=== PATIENT | female | born 1935 | race Caucasian/White ===

== ENCOUNTER 2023-06-21 08:00 | Inpatient (IN) | payer MEDICARE, BC ==
[~2023-06-21] VITALS: Ht 154.9 cm; Wt 64.8 kg
[2023-06-21] VITALS (20 sets, daily range): BP systolic 82–164; BP diastolic 42–78; PULSE 71–99; RESP 14–21; TEMP 97–98; O2SAT 92–98
[2023-06-21] MEDS: normal saline 1,000 ML IV SCH ×2 (08:15→18:20)
[2023-06-21] MEDS ORDERED: diphenhydrAMINE 25mg capsule PO PRN (08:20)
[2023-06-21] MEDS ORDERED: DENO60DI SUBCUT (08:47)
[2023-06-21] MEDS ORDERED: POTA-366 PO (08:47)
[2023-06-21] MEDS ORDERED: APIX5TAB3 PO (08:47)
[2023-06-21] MEDS ORDERED: ALBU8HFA (08:47)
[2023-06-21] MEDS ORDERED: LEVO88TA7 PO (08:47)
[2023-06-21] MEDS ORDERED: FURO20TA4 PO (08:47)
[2023-06-21] MEDS ORDERED: METO50TA16 PO (08:47)
[2023-06-21] MEDS ORDERED: FEXO-271 PO (08:47)
[2023-06-21] MEDS ORDERED: ROSU20TA73 PO (08:47)
[2023-06-21] MEDS ORDERED: FLUT1BLS16 INH (08:47)
[2023-06-21] MEDS ORDERED: LISI20TA28 PO (08:47)
[2023-06-21 09:15] LABS: INR 1.1 INR; PROTHROMBIN TIME 11.4 SECONDS (9.0-12.0)
[2023-06-21 09:18] LABS: ALBUMIN 3.6 G/DL (3.4-5.0); ANION GAP 9 (8-16); BLOOD UREA NITROGEN 20 MG/DL (7-18); BUN/CREATININE RATIO 18.7 (10.0-20.0); CALCIUM 9.8 MG/DL (8.5-10.1); CHLORIDE 105 MMOL/L (99-107); CREATININE 1.07 MG/DL (0.40-0.90); EOSINOPHILS # (AUTO) 0.4 X10'3 (0-0.9); GLUCOSE 94 MG/DL (70-104); HEMOGLOBIN 11.5 g/dl (12.0-16.0); LYMPHOCYTES # (AUTO) 0.8 X10'3 (1.1-4.8); MAGNESIUM 2.1 MG/DL (1.5-2.4); MEAN PLATELET VOLUME 7.9 FL (7.4-10.4); NEUTROPHILS # (AUTO) 4.4 X10'3 (1.8-7.7); POTASSIUM 4.3 MMOL/L (3.5-5.1); SODIUM 139 MMOL/L (135-145); TOTAL CARBON DIOXIDE 25.2 MMOL/L (24-32); eCRCL 27 ML/MIN; eGFR 48 ML/MIN
[2023-06-21 09:20] LABS: BASOPHILS % (AUTO) 0.8 % (0-1); EOSINOPHILS % (AUTO) 6.9 % (0-6); HEMATOCRIT 35.3 % (35.0-45.0); LYMPHOCYTES % (AUTO) 13.1 % (21-51); MEAN CORPUSCULAR HGB CONC 32.4 g/dL (33.0-36.5); MEAN CORPUSCULAR VOLUME 89.3 FL (78-98); MONOCYTES # (AUTO) 0.5 X10'3 (0-0.9); MONOCYTES % (AUTO) 7.7 % (2-12); NEUTROPHILS % (AUTO) 71.5 % (42-75); PLATELET COUNT 223 X10'3 (140-440); RED BLOOD COUNT 3.95 X10'6 (4.20-5.60); RED CELL DISTRIBUTION WIDTH 18.8 % (11.5-14.5); WHITE BLOOD COUNT 6.1 X10'3 (4.5-11.0)
[2023-06-21 10:19] LABS: ANISOCYTOSIS 2+; PLATELET ESTIMATE NORMAL
[2023-06-21] MEDS ORDERED: verapamil 2.5 mg/ml inj IV ONE (11:07)
[2023-06-21] MEDS ORDERED: midazolam 1 mg/ML 2ml injection ONE (11:07)
[2023-06-21] MEDS ORDERED: LIDOcaine 1% (10mg/ml) 2ml vial ONE (11:07)
[2023-06-21] MEDS ORDERED: iohexol 350MG/ML 100ml bottle IV ONE (11:08)
[2023-06-21] MEDS ORDERED: iohexol 350 MG/ML 50ML vial IV ONE (11:08)
[2023-06-21] MEDS ORDERED: fentaNYL/PF 50MCG/1 ML 2ML syringe ONE (11:08)
[2023-06-21] MEDS ORDERED: heparin 1,000unit/ml 10ml vial 10 ML ONE (11:08)
[2023-06-21] MEDS ORDERED: LIDOcaine 1% 30ml preserv. free vial ONE (11:19)
[2023-06-21] MEDS ORDERED: hydrALAZINE 20mg/ml inj. IV ONE (12:09)
[2023-06-21] MEDS ORDERED: ondansetron/PF 4mg/2ml inj IV PRN (12:55)
[2023-06-21] MEDS ORDERED: HYDROcodone/acetaminophen 10/325mg tab PO PRN (12:55)
[2023-06-21] MEDS ORDERED: proCHLORperazine 10 MG/2 ml inj IV PRN (12:55)
[2023-06-21] MEDS ORDERED: HYDROcodone/acetaminophen 5mg/325mg tablet PO PRN (12:55)
[2023-06-21] MEDS ORDERED: normal saline 1000ml 1,000 ML IV SCH (12:55)
[2023-06-21] MEDS ORDERED: mag hydrox/Alum hydrox/simeth 30ml oral suspension PO ONE (14:15)
--- NOTE | 2023-06-21 14:18 | NUR ---
Pt having intermittent chest pressure/ stabbing. EKG done and unchanged from this morning. Bolus 250 mls normal saline given for bp's high 80's to low 90's. Per report apresoline given during case. Some improvement in bp's, now [address] Leach made aware of all. Echocardiogram in progress. Rec orders for Maalox PO per Dr Leach, stated not concerned about coronary artery cause. Will give ordered Maalox and monitor.
--- NOTE | 2023-06-21 16:01 | NUR ---
Dr Leach at bedside seeing patient and reviewing echocardiogram. [facility] [place] technical support specialist on unit with Dr Leach. Made aware pt having pain on inspiration and the pain remains at 6-7. BP's stable at this time.
[2023-06-21] MEDS ORDERED: ketorolac tromethamine 15mg/ml inj. IV ONE (16:20)
[2023-06-21] MEDS ORDERED: DENOSUMAB 60 MG/ML inj. SQ SCH (18:40)
[2023-06-21] MEDS: budesonide 0.5mg/2ml UD nebule IH SCH ×2 (20:27→21:00)
[2023-06-21] MEDS: ipratropium/albuterol 3ml nebule NEB SCH (20:28)
[2023-06-21] MEDS: apixaban 5mg tablet PO SCH (20:31)
[2023-06-21] MEDS: metoprolol tartrate 50mg tablet PO SCH (20:32)
[2023-06-21] MEDS ORDERED: atorvastatin 20mg tablet PO SCH (21:00)
[2023-06-22] VITALS (7 sets, daily range): BP systolic 120–129; BP diastolic 64; PULSE 71–93; RESP 16–18; TEMP 97.7; O2SAT 92–98
[2023-06-22] MEDS: ipratropium/albuterol 3ml nebule NEB SCH ×2 (03:20→07:07)
[2023-06-22] MEDS: normal saline 1,000 ML IV SCH (05:06)
[2023-06-22 06:22] LABS: BASOPHILS % (AUTO) 0.4 % (0-1); EOSINOPHILS # (AUTO) 0.2 X10'3 (0-0.9); EOSINOPHILS % (AUTO) 2.6 % (0-6); HEMATOCRIT 28.8 % (35.0-45.0); HEMOGLOBIN 9.3 g/dl (12.0-16.0); LYMPHOCYTES # (AUTO) 1.2 X10'3 (1.1-4.8); LYMPHOCYTES % (AUTO) 15.7 % (21-51); MEAN CORPUSCULAR HGB CONC 32.2 g/dL (33.0-36.5); MEAN CORPUSCULAR VOLUME 90.2 FL (78-98); MONOCYTES # (AUTO) 0.7 X10'3 (0-0.9); MONOCYTES % (AUTO) 9.3 % (2-12); NEUTROPHILS # (AUTO) 5.5 X10'3 (1.8-7.7); PLATELET COUNT 208 X10'3 (140-440); RED CELL DISTRIBUTION WIDTH 18.5 % (11.5-14.5); WHITE BLOOD COUNT 7.7 X10'3 (4.5-11.0)
[2023-06-22 06:23] LABS: ANION GAP 9 (8-16); BLOOD UREA NITROGEN 23 MG/DL (7-18); BUN/CREATININE RATIO 17.2 (10.0-20.0); CALCIUM 8.7 MG/DL (8.5-10.1); CHLORIDE 107 MMOL/L (99-107); CREATININE 1.34 MG/DL (0.40-0.90); GLUCOSE 106 MG/DL (70-104); POTASSIUM 3.8 MMOL/L (3.5-5.1); SODIUM 138 MMOL/L (135-145); TOTAL CARBON DIOXIDE 21.7 MMOL/L (24-32); eCRCL 21 ML/MIN; eGFR 37 ML/MIN
--- NOTE | 2023-06-22 06:28 | NUR ---
Patient in room PCU 3027. I have received report from Lianne SPENCE and had the opportunity to ask questions and assume patient care.
[2023-06-22 06:29] LABS: INR 1.1 INR; PROTHROMBIN TIME 11.9 SECONDS (9.0-12.0)
--- NOTE | 2023-06-22 06:36 | NUR ---
Problems reprioritized. Patient report given, questions answered & plan of care reviewed with Barber
[2023-06-22] MEDS: budesonide 0.5mg/2ml UD nebule IH SCH (07:07)
[2023-06-22] MEDS ORDERED: loratadine 10mg tablet PO SCH (08:00)
[2023-06-22] MEDS ORDERED: lisinopril 10 MG tablet PO SCH (08:00)
[2023-06-22] MEDS ORDERED: furosemide 20MG tablet PO SCH (08:00)
[2023-06-22] MEDS ORDERED: potassium Cl 20 mEq SR tablet PO SCH (08:00)
[2023-06-22] MEDS ORDERED: levoTHYROXINE 88mcg tablet PO SCH (08:00)
[2023-06-22] MEDS: apixaban 5mg tablet PO SCH (08:14)
[2023-06-22] MEDS: metoprolol tartrate 50mg tablet PO SCH (08:16)
--- NOTE | 2023-06-22 10:45 | NUR ---
Pt DC'd as per Dr's orders. Pt was unhooked from all tele and IV's. Education was provided at bedside to family and pt, all questions were answered. Pt will schedule follow up appointments and no med changes were made. Belongings were gathered up by the pt and taken with them. Pt was wheeled down to lobby by care staff and put in private vehicle destined for home.
== END 2023-06-22 10:40 | disposition home or self-care (01) | DRG 287 ==
LOC: SSTAY O 08:00 → PCU 3S 12:11
PROVIDERS: ADMIT Internal Medicine Cardiovascular Disease; ATTEND Internal Medicine Cardiovascular Disease
PROC: 4A023N8 Measurement of Cardiac Sampling and Pressure, Bilateral, Percutaneous Approach (ICD-10-PCS; principal; 2023-06-21)
PROC: B2111ZZ Fluoroscopy of Multiple Coronary Arteries using Low Osmolar Contrast (ICD-10-PCS; 2023-06-21)
DX: I35.0 Nonrheumatic aortic (valve) stenosis (principal)
CPT/HCPCS: 36415; 80048; 83735; 85008; 85025; 85610; 93005; 93306; 93460; 94640; 94760; 99152; 99153; A6258; C1725; C1751; C1760; C1769; C1894; G0378; J0360; J1644; J1885; J2250; J3010; J3490; J7030; Q9967

== ENCOUNTER 2023-07-02 10:49 | Outpatient (CLI) | payer MEDICARE, BC ==
[~2023-07-02 10:49] MED LIST: ALBU8HFA; APIX5TAB3 PO; DENO60DI SUBCUT; FEXO-271 PO; FLUT1BLS16 INH; FURO20TA4 PO; LEVO88TA7 PO; LISI20TA28 PO; METO50TA16 PO; POTA-366 PO; ROSU20TA73 PO
[2023-07-02 11:58] LABS: BASOPHILS # (AUTO) 0.1 X10'3 (0-0.2); EOSINOPHILS # (AUTO) 0.3 X10'3 (0-0.9); HEMATOCRIT 32.6 % (35.0-45.0); HEMOGLOBIN 10.4 g/dl (12.0-16.0); LYMPHOCYTES # (AUTO) 0.9 X10'3 (1.1-4.8); MEAN CORPUSCULAR HEMOGLOBIN 28.5 PG (27.0-31.0); MEAN CORPUSCULAR HGB CONC 31.9 g/dL (33.0-36.5); MEAN CORPUSCULAR VOLUME 89.1 FL (78-98); MEAN PLATELET VOLUME 7.7 FL (7.4-10.4); MONOCYTES # (AUTO) 0.5 X10'3 (0-0.9); MONOCYTES % (AUTO) 9.6 % (2-12); NEUTROPHILS # (AUTO) 3.8 X10'3 (1.8-7.7); NEUTROPHILS % (AUTO) 67.4 % (42-75); PLATELET COUNT 260 X10'3 (140-440); RED BLOOD COUNT 3.66 X10'6 (4.20-5.60); RED CELL DISTRIBUTION WIDTH 18.3 % (11.5-14.5); WHITE BLOOD COUNT 5.6 X10'3 (4.5-11.0)
[2023-07-02 12:04] LABS: APTT 32 SECONDS (22-32); INR 1.2 INR; PROTHROMBIN TIME 12.4 SECONDS (9.0-12.0)
[2023-07-02 12:21] LABS: ALANINE AMINOTRANSFERASE 11 U/L (12-78); ALBUMIN 3.2 G/DL (3.4-5.0); ALBUMIN/GLOBULIN RATIO 0.9 (1.1-1.5); ALKALINE PHOSPHATASE 94 IU/L (46-116); ANION GAP 8 (8-16); ASPARTATE AMINO TRANSFERASE 21 U/L (10-37); BILIRUBIN,TOTAL 0.5 MG/DL (0.1-1.0); BLOOD UREA NITROGEN 17 MG/DL (7-18); BUN/CREATININE RATIO 17.7 (10.0-20.0); CALCIUM 9.5 MG/DL (8.5-10.1); CHLORIDE 106 MMOL/L (99-107); CREATININE 0.96 MG/DL (0.40-0.90); GLUCOSE 96 MG/DL (70-104); POTASSIUM 4.3 MMOL/L (3.5-5.1); PRO BRAIN NATRIURETIC PEPTIDE 3746 PG/ML (0-450); SODIUM 139 MMOL/L (135-145); TOTAL CARBON DIOXIDE 25.1 MMOL/L (24-32); TOTAL PROTEIN 6.8 G/DL (6.4-8.2); eGFR 55 ML/MIN
== END 2023-07-02 23:59 | disposition home or self-care (01) ==
LOC: VAS 10:49
PROVIDERS: ATTEND Internal Medicine Cardiovascular Disease
DX: I08.0 Rheumatic disorders of both mitral and aortic valves (principal); R06.02 Shortness of breath; I65.23 Occlusion and stenosis of bilateral carotid arteries; J90 Pleural effusion, not elsewhere classified; J98.11 Atelectasis; I70.0 Atherosclerosis of aorta; K76.89 Other specified diseases of liver; N28.1 Cyst of kidney, acquired; M85.88 Other specified disorders of bone density and structure, other site; M47.814 Spondylosis without myelopathy or radiculopathy, thoracic region; K40.20 Bilateral inguinal hernia, without obstruction or gangrene, not specified as recurrent
CPT/HCPCS: 36415; 71046; 71275; 74174; 75572; 80053; 83880; 85025; 85610; 85730; 93880; Q9967

== ENCOUNTER 2023-07-08 14:39 | Outpatient (CLI) | payer MEDICARE, BC ==
[~2023-07-08] VITALS: Ht 154.9 cm; Wt 64.2 kg
[~2023-07-08 14:39] MED LIST changes: +IODIXANOL 320 MG/ML INFUS..BTL 100ML IV ONE
[2023-07-08 16:00] VITALS: BP 144/74; PULSE 76; RESP 22; TEMP 97.4; O2SAT 97
--- NOTE | 2023-07-08 16:01 | NUR ---
Patient and son Neal and Daughter in Law were in the [facility] clinic today to consult with Dr. Wood, Dr. Fabiola Wren and Dr. Gregory. [facility] attempted, patient unsteady and unable to complete the test. Vital signs measured. Patient education reviewed and questions answered.
== END 2023-07-08 23:59 | disposition home or self-care (01) ==
LOC: TAVR 14:39
PROVIDERS: ATTEND Internal Medicine Cardiovascular Disease
DX: I11.9 Hypertensive heart disease without heart failure (principal); I35.0 Nonrheumatic aortic (valve) stenosis; R06.02 Shortness of breath; I65.29 Occlusion and stenosis of unspecified carotid artery; I48.91 Unspecified atrial fibrillation; E78.5 Hyperlipidemia, unspecified
CPT/HCPCS: Q9967

== ENCOUNTER 2023-09-09 07:26 | Inpatient (IN) | payer MEDICARE, BC ==
[2023-09-03 12:10] LABS: BASOPHILS # (AUTO) 0.1 X10'3 (0-0.2); BASOPHILS % (AUTO) 0.8 % (0-1); EOSINOPHILS # (AUTO) 0.5 X10'3 (0-0.9); EOSINOPHILS % (AUTO) 8.2 % (0-6); LYMPHOCYTES # (AUTO) 0.8 X10'3 (1.1-4.8); LYMPHOCYTES % (AUTO) 12.6 % (21-51); MEAN CORPUSCULAR VOLUME 87.5 FL (78-98); MEAN PLATELET VOLUME 7.9 FL (7.4-10.4); MONOCYTES # (AUTO) 0.5 X10'3 (0-0.9); MONOCYTES % (AUTO) 7.2 % (2-12); NEUTROPHILS # (AUTO) 4.6 X10'3 (1.8-7.7); NEUTROPHILS % (AUTO) 71.2 % (42-75); PRE OP HEMATOCRIT 37.2 % (35.0-45.0); PRE OP HEMOGLOBIN 11.9 g/dL (12.0-16.0); PRE OP PLATELET COUNT 240 X10'3 (140-440); PRE OP WHITE BLOOD COUNT 6.4 10'3 (4.8-10.8); RED BLOOD COUNT 4.25 X10'6 (4.20-5.60); RED CELL DISTRIBUTION WIDTH 20.1 % (11.5-14.5)
[2023-09-03 12:19] LABS: BILIRUBIN,URINE NEGATIVE (Neg); CLARITY,URINE CLEAR (Clear); COLOR,URINE YELLOW (Yellow); GLUCOSE, URINE NEGATIVE (Neg); KETONES,URINE NEGATIVE (Neg); LEUKOCYTE ESTERASE ,URINE MODERATE (Neg); NITRITES, URINE NEGATIVE (Neg); OCCULT BLOOD,URINE TRACE-INTACT (Neg); PH,URINE 6.5 (4.8-8.0); PROTEIN,URINE NEGATIVE (Neg); UROBILINOGEN,URINE 0.2 E.U/dL (0.2-1.0)
[2023-09-03 12:20] LABS: PRE OP INR 1.1 INR
[2023-09-03 12:34] LABS: UA COLLECTION TYPE NON-SPECIFIED
[2023-09-03 12:35] LABS: BACTERIA,URINE FEW /HPF (Neg); MUCUS STRANDS FEW /LPF (Neg); SQUAMOUS EPITHELIAL CELL,UR MODERATE /LPF (FEW)
[2023-09-03 12:36] LABS: TRANSITIONAL EPI CELLS,URINE FEW /HPF
[2023-09-03 12:44] LABS: ALBUMIN 3.6 G/DL (3.4-5.0); ALKALINE PHOSPHATASE 64 IU/L (46-116); BLOOD UREA NITROGEN 18 MG/DL (7-18); BUN/CREATININE RATIO 17.6 (10.0-20.0); CALCIUM 9.8 MG/DL (8.5-10.1); CHLORIDE 103 MMOL/L (99-107); CREATININE 1.02 MG/DL (0.40-0.90); PRE OP ALT 16 U/L (30-65); PRE OP ANION GAP 8 (8-16); PRE OP AST 25 U/L (10-37); PRE OP BILIRUB, TOTAL 0.6 MG/DL (0.0-1.0); PRE OP GLUCOSE 90 MG/DL (70-104); PRE OP POTASSIUM 3.9 MMOL/L (3.4-5.1); PRE OP SODIUM 139 MMOL/L (135-145); PRO BRAIN NATRIURETIC PEPTIDE 4418 PG/ML (0-450); TOTAL CARBON DIOXIDE 27.7 MMOL/L (24-32); TOTAL PROTEIN 7.3 G/DL (6.4-8.2); eGFR 51 ML/MIN
[2023-09-03 12:54] LABS: ANISOCYTOSIS 3+; PLATELET ESTIMATE NORMAL
[2023-09-03 12:55] LABS: ELLIPTOCYTES FEW; SCHISTOCYTES FEW
[2023-09-09] VITALS (27 sets, daily range): BP systolic 121–175; BP diastolic 57–85; PULSE 64–101; RESP 11–24; TEMP 97.6–98.6; O2SAT 94–100
[~2023-09-09] VITALS: Ht 154.9 cm; Wt 63.6 kg
[~2023-09-09 07:26] MED LIST changes: -DENO60DI SUBCUT; +DOCUMENT DATE & TIME OF BETA-BLOCKER PO ONE; -FEXO-271 PO; -IODIXANOL 320 MG/ML INFUS..BTL 100ML IV ONE; +albuterol 2.5 MG/3 ML nebule NEB ONE; +aspirin 325mg tablet PO ONE; +cefazolin 2gm/D5W 100mL 100 ML IV ONE; +famotidine 20mg tablet PO ONE; +nitroPRUSSIDE (NIPRIDE) (200MCG/ML) 100ML Drip IV SCH; +ondansetron 4mg rapidly disintigrating tab PO PRN; +phenylephrine inj 50 MG in normal saline 250ml IV solN IV SCH; +protamine sulfate 10mg/ml inj. ONE; +ringers solution, lacted 1,000 ML IV SCH; +vancomycin/NS 1 GM in NS 250 ML IV ONE
[2023-09-09] MEDS ORDERED: LIDOcaine 1% (10mg/ml) 2ml vial ONE (09:53)
[2023-09-09] MEDS ORDERED: iohexol 350MG/ML 100ml bottle IV ONE (10:24)
[2023-09-09] MEDS ORDERED: LIDOcaine 1% (10mg/ml)w/preservative inj. 20ml MDV ONE (10:24)
[2023-09-09] MEDS ORDERED: heparin 1,000 UNITS/NS 500ml 1,500 ML ONE (10:25)
[2023-09-09] MEDS ORDERED: protamine sulf. 10mg/ml inj. IV ONE (10:30)
[2023-09-09] MEDS ORDERED: heparin 1,000 units/ml 10ml inj ONE (10:37)
[2023-09-09] MEDS ORDERED: midazolam 1 mg/ML 2ml injection ONE (10:47)
[2023-09-09] MEDS ORDERED: ondansetron/PF 4mg/2ml inj IV PRN (11:55)
[2023-09-09] MEDS ORDERED: potassium Cl 20 mEq SR tablet PO PRN (11:55)
[2023-09-09] MEDS ORDERED: magnesium 2GM in 50ml NS 50 ML IV PRN (11:55)
[2023-09-09] MEDS ORDERED: potassium Cl 40MEQ/270ML bag 250 ML IV PRN (11:55)
[2023-09-09] MEDS ORDERED: potassium Cl 40MEQ/1/2NS 520ml 520 ML IV PRN (11:55)
[2023-09-09] MEDS ORDERED: magnesium 4gm in 100ml NS 100 ML IV PRN (11:55)
[2023-09-09] MEDS ORDERED: proCHLORperazine 10 MG/2 ml inj IV PRN (11:55)
[2023-09-09] MEDS ORDERED: HYDROcodone/acetaminophen 5mg/325mg tablet PO PRN (11:55)
[2023-09-09] MEDS ORDERED: labetalol 20mg/4ml (5mg/ml) syringe IV PRN (11:55)
[2023-09-09] MEDS ORDERED: pantoprazole 40mg Tablet.DR PO PRN (11:55)
[2023-09-09] MEDS ORDERED: docusate sod 100mg capsule PO PRN (11:55)
[2023-09-09] MEDS ORDERED: diphenhydrAMINE 25mg capsule PO PRN (11:55)
[2023-09-09] MEDS ORDERED: normal saline 1000ml 1,000 ML IV SCH (11:55)
[2023-09-09] MEDS ORDERED: ALPRAZolam 0.25mg tablet PO PRN (11:55)
[2023-09-09] MEDS ORDERED: potassium Cl 20mEq/100mL bag 100 ML IV PRN (11:55)
[2023-09-09] MEDS ORDERED: acetaminophen 325mg tablet PO PRN (11:55)
[2023-09-09] MEDS ORDERED: potassium CL 10mEq/100ml bag 100 ML IV PRN (11:55)
--- NOTE | 2023-09-09 12:06 | NUR ---
Received from OR via hospital bed, accompanied by Anesthesiologist Yonas and report given by Anesthesiolgist and JORDY Liz. Pt awake and responding appropriately. Bilateral groin dressing, gauze and tegaderm CDI no hematoma present. DP pulses weak palpable. PT pulses weak with doppler. Hydralazine IVP given to keep SBP <160. VSS. OOB sign at head of bed for 1800. Will continue to monitor.
[2023-09-09] MEDS: hydrALAZINE 20mg/ml inj. IV PRN (12:43)
--- NOTE | 2023-09-09 13:56 | NUR ---
Report given to JORDY Cespedes. Pt transported to . Bed locked and in low position, call light in reach. Pt set up on cardiac monitor and VSS. All belongings with patient at bedside: clothes and slippers. Pt tolerated fluids wells. No c/o pain or discomfort. Family at bedside.
--- NOTE | 2023-09-09 18:41 | NUR ---
Patient transported in hospital bed to room 3016B and beside report given to JORDY Castano. Bilateral groin sites visualized and assessed at bedside, as well as left radial artery site. Dressings to left wrist and bilateral groins CDI, no signs of hematoma or bleeding noted. All patient belongings including cell phone transported with patient and left at bedside. Patients family at bedside with patient during report.
[2023-09-09] MEDS: ceFAZolin 1GM/D5W- ADD-VANTAGE 50 ML IV SCH (20:25)
[2023-09-09] MEDS: metoprolol tartrate 50mg tablet PO SCH (20:25)
[2023-09-09] MEDS ORDERED: atorvastatin 20mg tablet PO SCH (21:00)
[2023-09-09] MEDS: vancomycin/NS 1 GM ADD-VANTAGE 250 ML IV SCH (21:27)
[2023-09-10] VITALS (11 sets, daily range): BP systolic 133–165; BP diastolic 64–75; PULSE 58–99; RESP 16–25; TEMP 97.2–97.5; O2SAT 95–97
[2023-09-10] MEDS: albuterol 2.5 MG/3 ML nebule NEB PRN ×2 (00:01→05:46)
[2023-09-10] MEDS: ceFAZolin 1GM/D5W- ADD-VANTAGE 50 ML IV SCH ×2 (01:34→08:00)
[2023-09-10] MEDS: hydrALAZINE 20mg/ml inj. IV PRN (02:41)
--- NOTE | 2023-09-10 06:21 | NUR ---
Patient report given, questions answered & plan of care reviewed with JORDY Denise
[2023-09-10 07:41] LABS: BASOPHILS % (AUTO) 0.7 % (0-1); EOSINOPHILS # (AUTO) 0.2 X10'3 (0-0.9); EOSINOPHILS % (AUTO) 3.2 % (0-6); HEMATOCRIT 32.2 % (35.0-45.0); HEMOGLOBIN 10.6 g/dl (12.0-16.0); LYMPHOCYTES # (AUTO) 0.6 X10'3 (1.1-4.8); LYMPHOCYTES % (AUTO) 9.3 % (21-51); MEAN CORPUSCULAR HEMOGLOBIN 28.3 PG (27.0-31.0); MEAN CORPUSCULAR HGB CONC 32.8 g/dL (33.0-36.5); MEAN CORPUSCULAR VOLUME 86.3 FL (78-98); MEAN PLATELET VOLUME 7.9 FL (7.4-10.4); MONOCYTES # (AUTO) 0.7 X10'3 (0-0.9); MONOCYTES % (AUTO) 12.4 % (2-12); NEUTROPHILS # (AUTO) 4.5 X10'3 (1.8-7.7); NEUTROPHILS % (AUTO) 74.4 % (42-75); PLATELET COUNT 134 X10'3 (140-440); RED BLOOD COUNT 3.73 X10'6 (4.20-5.60); RED CELL DISTRIBUTION WIDTH 20.2 % (11.5-14.5)
[2023-09-10] MEDS ORDERED: lisinopril 10 MG tablet PO SCH (08:00)
[2023-09-10] MEDS ORDERED: potassium Cl 20 mEq SR tablet PO SCH (08:00)
[2023-09-10] MEDS ORDERED: Fluticasone/Umeclidin/Vilanter (Trelegy Ellipta 200-62.5-25) PO SCH (08:00)
[2023-09-10] MEDS ORDERED: furosemide 20MG tablet PO SCH (08:00)
[2023-09-10] MEDS: sod chloride 0.9% 10ml flush syringe IV SCH ×2 (08:00)
[2023-09-10] MEDS ORDERED: levoTHYROXINE 88mcg tablet PO SCH (08:00)
[2023-09-10 08:01] LABS: ALANINE AMINOTRANSFERASE 12 U/L (12-78); ALBUMIN 2.8 G/DL (3.4-5.0); ALBUMIN/GLOBULIN RATIO 0.8 (1.1-1.5); ALKALINE PHOSPHATASE 57 IU/L (46-116); ANION GAP 8 (8-16); ASPARTATE AMINO TRANSFERASE 23 U/L (10-37); BILIRUBIN,TOTAL 0.7 MG/DL (0.1-1.0); BLOOD UREA NITROGEN 15 MG/DL (7-18); BUN/CREATININE RATIO 14.3 (10.0-20.0); CHLORIDE 105 MMOL/L (99-107); CREATININE 1.05 MG/DL (0.40-0.90); GLUCOSE 123 MG/DL (70-104); MAGNESIUM 1.9 MG/DL (1.5-2.4); POTASSIUM 3.6 MMOL/L (3.5-5.1); PRO BRAIN NATRIURETIC PEPTIDE 4645 PG/ML (0-450); SODIUM 137 MMOL/L (135-145); TOTAL CARBON DIOXIDE 23.8 MMOL/L (24-32); TOTAL PROTEIN 6.1 G/DL (6.4-8.2); eCRCL 27 ML/MIN; eGFR 49 ML/MIN
[2023-09-10 08:53] LABS: PLATELET ESTIMATE DECREASED
[2023-09-10 08:54] LABS: ANISOCYTOSIS 3+
[2023-09-10 08:57] LABS: ELLIPTOCYTES 1+
--- NOTE | 2023-09-10 09:06 | NUR ---
page to respiratory [id number] Gissell Torrez . Patient feeling wheezy and SOB. Requesting breathing tx. Thank you . Soraida @[phone]
[2023-09-10] MEDS: metoprolol tartrate 50mg tablet PO SCH (09:55)
[2023-09-10] MEDS: vancomycin/NS 1 GM ADD-VANTAGE 250 ML IV SCH (09:55)
== END 2023-09-10 15:55 | disposition home or self-care (01) | DRG 266 ==
LOC: PAS IN 07:26 → PCU 3S 18:00 → SUR 3N 09-10 12:30 → PCU 3S 09-10 12:31
PROVIDERS: ADMIT Internal Medicine Cardiovascular Disease; ATTEND Internal Medicine Cardiovascular Disease
PROC: 03HY32Z Insertion of Monitoring Device into Upper Artery, Percutaneous Approach (ICD-10-PCS; 2023-09-09)
PROC: B41D1ZZ Fluoroscopy of Aorta and Bilateral Lower Extremity Arteries using Low Osmolar Contrast (ICD-10-PCS; 2023-09-09)
PROC: 02RF38N Replacement of Aortic Valve with Zooplastic Tissue, using Rapid Deployment Technique, Percutaneous Approach (ICD-10-PCS; principal; 2023-09-09 10:37)
DX: I35.0 Nonrheumatic aortic (valve) stenosis (principal); Z00.6 Encounter for examination for normal comparison and control in clinical research program; I50.33 Acute on chronic diastolic (congestive) heart failure; I48.91 Unspecified atrial fibrillation; E78.5 Hyperlipidemia, unspecified; I44.7 Left bundle-branch block, unspecified; Z79.899 Other long term (current) drug therapy; I11.0 Hypertensive heart disease with heart failure
CPT/HCPCS: 33361; 36415; 71045; 71046; 76937; 80053; 81001; 82948; 83735; 83880; 84443; 85008; 85025; 85347; 85610; 85730; 86885; 86900; 86901; 86920; 87081; 87088; 93005; 93308; 94640; 94760; A4618; A6258; A6449; C1756; C1760; C1769; C1894; G0378; J0360; J0690; J1644; J2250; J2370; J2720; J3370; J3490; J7030; J7040; J7050; J7120; Q9967